=== PATIENT | female | born 1985 | race American Indian/Alaskan Native ===

== ENCOUNTER 2020-12-10 11:17 | Emergency (ER) | payer SELFPAY ==
[2020-12-10 11:46] VITALS: BP 149/109
[2020-12-10] MEDS ORDERED: dexAMETHasone 4 MG/ML VIAL IM ONE (12:28)
--- NOTE | 2020-12-10 12:32 | Emergency Department Report ---
ED ENT HPI - General Chief complaint: Sore Throat Stated complaint: SORE THROAT/COUGH Time Seen by Provider: 12/10/20 12:11 Source: patient Mode of arrival: Ambulatory Limitations: No Limitations - History of Present Illness Initial comments: Patient is a 35-year-old female presents emergency room with complaints of a sore throat that began 3 days ago. She states that she feels like her throat is swollen and she has discomfort with swallowing. She states that she is able to tolerate liquids but has not been wanting to eat very much. 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 She denies any fever, nausea, vomiting, diarrhea, cough, shortness of breath. No past medical history. No allergies to medications. [facility] 11/20/20 - Related Data Previous Rx's Medication Instructions Recorded Last Taken Type Amoxicillin [Trimox] 500 mg PO BID 10 Days #40 capsule 12/10/20 Unknown Rx Allergies Allergy/AdvReac Type Severity Reaction Status Date / Time No Known Allergies Allergy Unverified 12/10/20 11:42 ED Dental HPI - General Chief complaint: Sore Throat Stated complaint: SORE THROAT/COUGH Time Seen by Provider: 12/10/20 12:11 Source: patient Mode of arrival: Ambulatory Limitations: No Limitations - Related Data Previous Rx's Medication Instructions Recorded Last Taken Type Amoxicillin [Trimox] 500 mg PO BID 10 Days #40 capsule 12/10/20 Unknown Rx Allergies Allergy/AdvReac Type Severity Reaction Status Date / Time No Known Allergies Allergy Unverified 12/10/20 11:42 ED Review of Systems ROS: Stated complaint: SORE THROAT/COUGH Other details as noted in HPI Comment: All other systems reviewed and negative ED Past Medical Hx - Past Medical History Previous Medical History?: No - Surgical History Past Surgical History?: No - Social History Smoking Status: Never Smoker Substance Use Type: Alcohol - Medications Home Medications: Home Medications Medication Instructions Recorded Confirmed Last Taken Type Amoxicillin [Trimox] 500 mg PO BID 10 Days #40 capsule 12/10/20 Unknown Rx ED Physical Exam - General Limitations: No Limitations General appearance: alert, in no apparent distress - Head Head exam: Present: atraumatic, normocephalic - Eye Eye exam: Present: normal appearance - ENT ENT exam: Present: mucous membranes moist, TM's normal bilaterally, normal external ear exam, other (bilateral tonsillar hypertrophy with exudates, posterior oropharynx erythema, uvula is midline, no uvular edema or deviation, no trismus, no muffled voice, no tongue elevation) - Respiratory Respiratory exam: Absent: respiratory distress, accessory muscle use - Neurological Exam Neurological exam: Present: alert, oriented X3 - Psychiatric Psychiatric exam: Present: normal affect, normal mood - Skin Skin exam: Present: warm, dry, intact ED Course Vital Signs 12/10/20 11:44 Temperature 99.1 F Pulse Rate 80 Respiratory 18 Rate Blood Pressure 149/109 O2 Sat by Pulse 100 Oximetry ED Medical Decision Making - Medical Decision Making Patient is a 35-year-old female presents emergency room with complaints of a sore throat that began 3 days ago. She states that she feels like her throat is swollen and she has discomfort with swallowing. She states that she is able to tolerate liquids but has not been wanting to eat very much. 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 She denies any fever, nausea, vomiting, diarrhea, cough, shortness of breath. No past medical history. No allergies to medications. [facility] 11/20/20. on exam: bilateral tonsillar hypertrophy with exudates, posterior oropharynx erythema, uvula is midline, no uvular edema or deviation, no trismus, no muffled voice, no tongue elevation. Examination consistent with tonsillitis. Given prescription for medication. Given dexamethasone IM. Advised patient Please take medication as prescribed. Increase your water intake. May take Tylenol or ibuprofen as needed for any discomfort. Gargle with warm salt water. May use throat lozenges. Throw away your toothbrush, do not let anyone drink after you and do not drink after others. Follow-up with your primary care doctor for reexamination. Return to emergency room for any new or worsening symptoms. Critical care attestation.: If time is entered above; I have spent that time in minutes in the direct care of this critically ill patient, excluding procedure time. ED Disposition Clinical Impression: Tonsillitis Disposition: [id number] TO HOME OR SELFCARE Is pt being admited?: No Does the pt Need Aspirin: No Condition: Stable Instructions: Tonsillitis, [id number] Additional Instructions: Please take medication as prescribed. Increase your water intake. May take Tylenol or ibuprofen as needed for any discomfort. Gargle with warm salt water. May use throat lozenges. Throw away your toothbrush, do not let anyone drink after you and do not drink after others. Follow-up with your primary care doctor for reexamination. Return to emergency room for any new or worsening symptoms. Prescriptions: Amoxicillin [Trimox] 500 mg PO BID 10 Days #40 capsule Referrals: your, primary care doctor [Other] - 2-3 Days Time of Disposition: 12:31 Print Language: LITHUANIAN
== END 2020-12-10 14:26 | disposition home or self-care (01) ==
LOC: ED 11:17
DX: J03.90 Acute tonsillitis, unspecified (principal); Z79.899 Other long term (current) drug therapy
CPT/HCPCS: 96372; 99282; J1100